=== PATIENT | female | born 1960 | race Caucasian/White ===

== ENCOUNTER 2023-07-29 16:40 | Emergency (ER) | payer OTHER ==
[~2023-07-29] VITALS: Ht 160 cm; Wt 90.9 kg
[~2023-07-29 16:40] MED LIST: ATENOLOL25 MG PO; CITALOPRAM HBR10 MG PO; GABAPENTIN300 MG PO; HYDROCHLOROTHIA25 MG PO; NAPROSYN500 MG PO; OFLOXACIN5 ML OTIC
--- OUTSIDE RECORDS SUMMARY | 2023-07-29 16:42 | XMS ---
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 E.D. VISIT COUNT (12 MO.) 2 MARCOS Sethi TOTAL 2 NOTE: Visits indicate total known visits. ED/UCC VISIT TRACKING (12 MO.) 07/29/2023 16:40 [facility] TYPE: Emergency COMPLAINT: - LT KNEE PAIN 12/01/2022 14:14 [facility] TYPE: Emergency COMPLAINT: - RIGHT FOOT INJURY DIAGNOSES: - Allergy status to narcotic agent - Effusion, right ankle - Other senior living (current) drug therapy - Other nonmedicinal substance allergy status - Pain in right ankle and joints of right foot INPATIENT VISIT TRACKING (12 MO.) No inpatient visits to display in this time frame [email or web address]
[2023-07-29] MEDS ORDERED: TRIAMCINOLONE ACET 40 MG/ML VIAL 1 ML IAARTIC ONE (17:15)
[2023-07-29 18:50] VITALS: BP 134/72
== END 2023-07-29 18:50 | disposition home or self-care (01) ==
LOC: ED 16:40
DX: M25.462 Effusion, left knee (principal); J44.9 Chronic obstructive pulmonary disease, unspecified; G80.9 Cerebral palsy, unspecified; M19.90 Unspecified osteoarthritis, unspecified site; Z88.5 Allergy status to narcotic agent; Z91.048 Other nonmedicinal substance allergy status; Z79.899 Other long term (current) drug therapy
CPT/HCPCS: 73560; J3301